=== PATIENT | female | born 1985 | race Caucasian/White ===

== ENCOUNTER 2019-06-01 17:11 | Emergency (ER) | payer MEDICAID ==
[~2019-06-01] VITALS: Ht 157.5 cm; Wt 43.5 kg
[2019-06-01 17:33] VITALS: Ht 157.5 cm; Wt 43.5 kg
[2019-06-01 17:59] LABS: BASOPHIL % 0.3 % (0-2); PLATELET COUNT 205 x10^3mcL (130-400)
[2019-06-01 18:00] LABS: RED CELL DISTRIBUTION WIDTH 15.6 % (11.5-14.5)
[2019-06-01 18:03] LABS: CALCIUM 9.1 mg/dL (8.5-10.1); CARBON DIOXIDE 28.7 mmol/L (21-32); CHLORIDE SERUM 100 mmol/L (98-107); CREATININE SERUM 0.9 mg/dL (0.6-1.0); GFR1 > 60 mL/min; GLUCOSE SERUM 102 mg/dL (74-106); POTASSIUM SERUM 3.4 mmol/L (3.5-5.1); SODIUM SERUM 138 mmol/L (136-145)
[2019-06-01 18:07] LABS: ALBUMIN 4.2 g/dL (3.4-5.0); ALKALINE PHOSPHATASE 62 U/L (46-116); ALT/SGPT 31 U/L (14-59); AST/SGOT 24 U/L (15-37); BILIRUBIN TOTAL 0.3 mg/dL (0.20-1.00); LIPASE 119 IU/L (73-393)
[2019-06-01 18:14] LABS: TOTAL PROTEIN, SERUM 8.7 g/dL (6.4-8.2)
[2019-06-01 19:43] VITALS: BP 141/96
== END 2019-06-01 19:43 | disposition home or self-care (01) ==
LOC: ED 17:11
PROVIDERS: Emergency Medicine
DX: B34.9 Viral infection, unspecified (principal)
CPT/HCPCS: 36415; J1885; Q0092